=== PATIENT | female | born 1975 | race Caucasian/White ===

== ENCOUNTER 2018-07-07 22:24 | Emergency (ER) | payer MEDICAID ==
[2018-07-08 02:47] VITALS: BP 128/78
== END 2018-07-08 02:47 | disposition home or self-care (01) ==
LOC: ED 22:24
DX: S39.012A Strain of muscle, fascia and tendon of lower back, initial encounter (principal); M54.41 Lumbago with sciatica, right side; N39.0 Urinary tract infection, site not specified; X58.XXXA Exposure to other specified factors, initial encounter; Y93.89 Activity, other specified; Y92.89 Other specified places as the place of occurrence of the external cause; Y99.8 Other external cause status
CPT/HCPCS: J1885